=== PATIENT | female | born 1995 | race Caucasian/White ===

== ENCOUNTER 2017-02-10 10:45 | Inpatient (IN) ==
[2017-02-10] MEDS ORDERED: ONDANSETRON 4 MG/2 ML VIAL IV STA (11:14)
[2017-02-10] MEDS ORDERED: HYDROmorphone 2 MG/1 ML VIAL IV STA (11:14)
[2017-02-10] MEDS ORDERED: SODIUM CHLORIDE 0.9% 2,000 ML IV STA (11:14)
[2017-02-10] MEDS ORDERED: ONDANSETRON 4 MG/2 ML VIAL ONE (11:26)
[2017-02-10] MEDS ORDERED: HYDROmorphone 2 MG/1 ML VIAL ONE (11:27)
[2017-02-10 11:29] LABS: Basophils % 0.3 % (0.0-0.8); Eosinophils # 0.1 10*3/uL (0.0-0.87); Eosinophils % 1.9 % (0.00-10.9); Hematocrit 35.8 VOL% (35.7-47.0); Hemoglobin 12.7 GM/DL (12.0-16.0); Immature Granulocytes % 0.6 %; Immature Granulocytes Absolute 0.04 #; Lymphocytes # 0.8 10*3/uL (1.4-4.0); Lymphocytes % 11.4 % (21.3-54.2); Mean Corpuscular HGB Conc 35.5 GM/DL (32-36); Mean Corpuscular Hemoglobin 32 PG (27-34); Mean Corpuscular Volume 90.2 FL (87-102); Monocytes # 0.9 10*3/uL (0.11-0.8); Neutrophils # 5.1 10*3/uL (1.4-7.4); Neutrophils % 72.8 % (38.7-73.9); Platelet Count 185 T/CUMM (130-400); Red Blood Count 3.97 MC/CUMM (3.8-5.5); Red Cell Distribution Width 11.9 % (9.3-17.3); White Blood Count 6.9 T/CUMM (4-12)
[2017-02-10] MEDS ORDERED: AMPICILLIN/SULBACTAM 3,000 MG in SODIUM CHLORIDE 0.9% 100 ML IV STA (11:47)
[2017-02-10 11:55] LABS: Albumin 3.4 G/DL (3.4-5.0); Bilirubin,Total 0.4 MG/DL (0.2-1.0); Calcium 8.7 MG/DL (8.5-10.1); Osmolality,Calculated 275.4 MOS/KG (273-304); Total Protein 6.4 G/DL (6.4-8.3)
--- NOTE | 2017-02-10 12:06 | Ultrasound Report ---
Exam: US abdomen Date: 02/10/2017 11:15 AM Comparison: None Indication: Nausea and vomiting Technique:[Multiple transabdominal real-time scans were obtained of the abdomen. Ultrasound images were captured and stored. Color-flow scans obtained.] Findings: No gallbladder pathology identified. CBD is normal in size measuring 4.2 mm. The liver is normal in size with no masses. The spleen and kidneys have an unremarkable appearance. Right kidney measures 108 mm length. Left kidney measures 112 mm in length. The visualized pancreas and aorta have an unremarkable appearance. The aortic bifurcation is obscured by bowel gas. Color flow in the IVC. Impression: No definite abdominal pathology identified. The Ultrasound images were captured and stored. PROCEDURE INTERPRETED AT [facility] DEPARTMENT OF RADIOLOGY Final Report Signed by: Dr. Suzanne Spencer
[2017-02-10 12:07] LABS: Amorphous Crystals,Urine Many /HPF (Few); Apearance,Urine CLOUDY (Clear); Bilirubin,Urine Negative (Negative); Blood, Urine Moderate mg/dL (Negative); Glucose,Urine (UA) Negative (Negative); Ketones,Urine 20 mg/dL (Negative); Mucus,Urine Many /LPF (Occasional); Nitrite,Urine Negative (Negative); Protein,Urine 30 MG/DL; Squamous Epithelial Cell,Urine Occasional /HPF (0-10); Urine Color Yellow (Yellow); Urine Specific Gravity 1.021 (1.001-1.035); Urine Urobilinogen < 2.0 EU/DL (0.2-1.0)
[2017-02-10] MEDS ORDERED: AMPICILLIN/SULBACTAM 3,000 MG VIAL ONE (13:01)
--- NOTE | 2017-02-10 13:34 | CT Report ---
CT abdomen pelvis w con Indication: Right lower quadrant abdominal pain Comparison: CT abdomen pelvis dated February 09, 2017 Technique: Multiple axial tomographic images of the abdomen and pelvis were obtained after the administration of 100 cc Omnipaque 350 intravenous contrast. Findings: Mild dependent change of the lungs present. No worrisome focal hepatic abnormality. Gallbladder nondistended. The pancreas is grossly unremarkable. The spleen is grossly unremarkable. The bilateral adrenal glands are grossly unremarkable. The bilateral kidneys are grossly unremarkable. The urinary bladder is incompletely distended. The uterus and bilateral adnexa are grossly unremarkable. Multiple pelvic phleboliths. Appendix grossly unremarkable. There is diffuse wall thickening of the colon and distal small bowel suspicious for enterocolitis which appears progressed from comparison study. Differential includes C. Difficile colitis as well as ulcerative colitis. Nonspecific mildly prominent mesenteric and retroperitoneal lymph nodes including the right lower quadrant. These may be reactive. Visualized vasculature grossly unremarkable. Visualized osseous and surrounding soft tissue structures appear grossly unchanged. IMPRESSION: There is diffuse wall thickening of the colon and distal small bowel suspicious for enterocolitis which appears progressed from comparison study. Differential includes C. Difficile colitis as well as ulcerative colitis. Nonspecific mildly prominent mesenteric and retroperitoneal lymph nodes including the right lower quadrant. These may be reactive. The CT exam was performed using one or more of the following dose reduction techniques: Automated exposure control, adjustment of the mA and/or kV according to patient size, or use of iterative reconstruction technique. PROCEDURE INTERPRETED AT [facility] DEPARTMENT OF RADIOLOGY Final Report Signed by: Dr Davonte Zazueta
[2017-02-10 13:51] LABS: Band Neutrophils 31 % (0-10); Eosinophils 1 % (0-10); Hypochromasia 1+; Lymphocytes 13 % (20-55); Platelet Estimate Adequate; Polychromasia Slight; Segmented Neutrophils 46 % (50-85); Total Cells Counted 100
--- NOTE | 2017-02-10 15:02 | Emergency Department Note ---
Du Rivera Manpreet, am scribing for, and in the presence of, Dmitri Phipps MD 11:16. Moise Rivera Doug C, MD, personally performed the services described in this documentation, ascribed by Justen Sandy in my presence, and it is both accurate and complete 502 . Arrival - Arrival Chief Complaint: Nausea/Vomiting/Diarrhea Stated Complaint: n/v/d ED Nursing Triage Note: C/o N/V/D and body aches-onset 4 days ago. Was seen here morning, but states she is no better. Actively vomiting in triage. Mode of Arrival: Ambulatory Limitations: No Limitations Source: Patient, Old Records Reviewed, RN Notes Reviewed - History of Present Illness HPI Narrative: Patient 21 white female comes emergency room complaining of persistent abdominal pain and nausea/vomiting. She has not had any fever or chills associated with this. She denies possibility of . She was seen here several days ago and had a CT of the abdomen which revealed some mesenteric adenopathy as well as some small bowel wall thickening suggesting enteritis. Patient states she was given some nausea which she promptly vomits up. Patient states she is just miserable and she is tearful during exam and obtaining the history. Onset (ago): day(s) (02/13/17) Consistency: constant Severity: moderate Date of Last Menstrual Period: at current Allergies/Adverse Reactions: Allergies Allergy/AdvReac Type Severity Reaction Status Date / Time No Known Allergies Allergy Verified 02/09/17 04:52 Home Medications: Home Medications Medication Instructions Recorded Confirmed Type Escitalopram [Lexapro] 10 mg PO DAILY PRN 02/09/17 02/10/17 History Naproxen [Naprosyn Tab] 375 mg PO Q12H PRN 02/09/17 02/10/17 History Ondansetron Odt Tab [Zofran Odt] 4 mg PO Q6H PRN #10 tablet 02/09/17 02/10/17 Rx Promethazine Tab [Phenergan Tab] 25 mg PO Q6H 02/09/17 02/10/17 History clonazePAM [Clonazepam] 1 mg PO DIRECTED PRN 02/09/17 02/10/17 History Review of System - Review of System 12 point system: reviewed and no additional remarkable complaints except as stated - Review of System Constitutional: Present: chills, diaphoresis. Absent: fever Respiratory: Absent: respiratory distress, wheezing Cardiovascular: Absent: chest pain Gastrointestinal: Present: abdominal pain, nausea, vomiting, diarrhea. Absent: hematemesis, melena Genitourinary female: Absent: dysuria Musculoskeletal: Absent: back pain, neck pain Skin: Absent: rash, lesions Neurological: Absent: headache, weakness Medical,Surgical,& Family Hx - Medical History Psychological: History of: Anxiety Disorders - Surgical History Surgical History: noncontributory - Family History Family History: noncontributory - Social History Smoking Status: Former smoker Frequency of Alcohol Use: None Type of Drug Use: None Exam Vital Signs: Vital Signs Temperature 102.0 F H 02/10/17 11:45 Pulse Rate 96 H 02/10/17 11:45 Respiratory Rate 21 02/10/17 11:45 Blood Pressure 141/79 02/10/17 11:45 O2 Sat by Pulse Oximetry 99 02/10/17 11:45 - General General appearance: alert, in no apparent distress - Head Head exam: Present: atraumatic, normocephalic, normal inspection - Eye Eye exam: Present: normal appearance, PERRL, EOMI - ENT ENT exam: Present: normal exam, normal oropharynx, mucous membranes moist - Neck Neck exam: Present: normal inspection, full ROM, trachea midline. Absent: tenderness - Chest Chest inspection: Present: normal inspection, symmetric chest wall rise. Absent : tenderness - Respiratory Respiratory exam: Present: normal lung sounds bilaterally. Absent: respiratory distress - Cardiovascular Cardiovascular exam: Present: regular rate, normal rhythm, normal heart sounds - Abdominal Exam Abdominal exam: Present: soft, tenderness (RUQ tenderness), normal bowel sounds. Absent: guarding, rebound - Extremities Exam Extremities exam: Present: normal inspection, full ROM, tenderness - Back Exam Back exam: Present: normal inspection, full ROM - Neurological Exam Neurological exam: Present: alert, oriented X3, CN II-XII intact, reflexes normal - Psychiatric Psychiatric exam: Present: normal affect, normal mood - Skin Skin exam: Present: warm, dry, intact, normal color. Absent: pallor Course Course Narrative: Patient's clinical presentation, laboratory and radiograph findings were discussed with the hospitalist service. They will evaluate the patient for possible admission. Results - Labs CBC & BMP: 02/10/17 11:23 02/10/17 11:23 Lab Results: I have reviewed the patients labs Labs: Laboratory Tests 02/10/17 11:23 WBC 6.9 D RBC 3.97 Hgb 12.7 Hct 35.8 MCV 90.2 MCH 32 MCHC 35.5 RDW 11.9 Plt Count 185 MPV 10.0 Neut % (Auto) 72.8 Lymph % (Auto) 11.4 L [place] % (Auto) 13.0 H Eos % (Auto) 1.9 Baso % (Auto) 0.3 Neut # (Auto) 5.1 Lymph # (Auto) 0.8 L [place] # (Auto) 0.9 H Eos # (Auto) 0.1 Baso # (Auto) 0.0 Total Counted Pending Immature Gran % 0.6 Nucleated RBC % 0.0 Immature Gran # 0.04 Nucleated RBCs # 0.00 Immature Plt Fraction 0.0 Laboratory Tests 02/10/17 11:23 Lactic Acid 1.1 Laboratory Tests 02/10/17 02/10/17 11:23 11:23 Sodium 140 Potassium 3.0 L Chloride 105 Carbon Dioxide 25 Anion Gap 13.0 BUN 4 L Creatinine 0.70 GFR Calculation 138 BUN/Creatinine Ratio 5.00 L Glucose 95 Calculated Osmolality 275.4 Lactic Acid 1.1 Calcium 8.7 Total Bilirubin 0.40 AST 9 ALT 14 Alkaline Phosphatase 49 Total Protein 6.4 Albumin 3.4 Globulin 3.0 Albumin/Globulin Ratio 1.1 Lipase 112.0 D Laboratory Tests 02/10/17 02/10/17 11:23 11:23 Urine Color Yellow Urine Appearance Cloudy Urine pH 5.0 Ur Specific [place] 1.021 Urine Protein 30 Urine Glucose (UA) Negative Urine Ketones 20 Urine Blood Moderate Urine Nitrate Negative Urine Bilirubin Negative Urine Urobilinogen < 2.0 H Urine Leukocytes Negative Ur Squamous Epith Cells Occasional Amorphous Crystals Many Urine Mucus Many Ur Culture Indicated? Not indicated Urine Test Negative Laboratory Tests 02/10/17 12:07 ESR Westergren 60 H Laboratory Tests 02/10/17 11:23 Total Counted 100 Segmented Neutrophils 46 L Band Neutrophils 31 H Lymphocytes 13 L Monocytes 9 Eosinophils 1 Platelet Estimate Adequate Polychromasia Slight Hypochromasia 1+ - Diagnostic Findings Procedure: CT Abdomen and Pelvis: report reviewed by me ("CT Abd/pel w/o con: There is diffuse wall thickening of the colon and distal small bowel suspicious for enterocolitis which appears progressed from comparison study. Differential includes C. Difficile colitis as well as ulcerative colitis. Nonspecific mildly prominent mesenteric and retroperitoneal lymph nodes including the right lower quadrant. These may be reactive."), Ultrasound: report reviewed by me ("US Abd: no definite abdominal pathology identified.") Disposition Clinical Impression: Acute colitis Case discussed with: patient, patient's family Disposition: Still a Patient Condition: Stable Time of Disposition: 15:02
[2017-02-10] MEDS ORDERED: ACETAMINOPHEN 500 MG TABLET ONE (15:13)
[2017-02-10] MEDS ORDERED: ACETAMINOPHEN 500 MG TABLET PO STA (15:22)
--- NOTE | 2017-02-10 16:22 | Hospitalist History & Physical ---
<Urmila Meraz - Last Filed: 02/10/17 17:28> Assessment and Plan (1) Acute colitis Status: Acute Assessment and plan: Admit to med surg. Consult GI. Stool samples (culture, wbc, c diff, and occult blood). IVFs. Clear liquid. Blood cultures pending. Current Visit: Yes (2) Diarrhea Status: Acute Assessment and plan: IVF. Stool samples. Current Visit: No (3) Vomiting Status: Acute Assessment and plan: prn zofran Current Visit: No History of Present Illness Chief complaint: abdominal pain History of present illness: Ms. Wilson is a 21 year old white female with no known medical history that presents to the ED with complaints of persistent abdominal pain, nausea, vomiting, and diarrhea. Patient states that she was just in the ED yesterday but was released and given Zofran. Patient states that the abdominal pain, nausea, vomiting, and diarrhea began on Monday. Abdominal pain is mainly located in the right lower quadrant. She denies fever, chest pain, and shortness of breath but confirms body aches chills and night sweats. Pt. reports not being able to eat since Monday. Pt. reports stools that were liquid and yellowish in color. Patient denies as she is menstruating at this time.During patient's ED visit (02/09) she had a CT of the abdomen which revealed some mesenteric adenopathy as well as mild, suggesting enteritis. Today , pt. states she vomited several times and was miserable. Pt. had a repeat CT today which revealed 'diffuse wall thickening of the colon and distal small bowel suspicious for enterocolitis which appears progressed from comparison study'. 'Nonspecific mildly prominent mesenteric and retroperitoneal lymph nodes including the right lower quadrant' Labs revealed a sed rate of 60 and CRP of 9.52. Pt's case has been discussed with ER physician Dr. Phipps and hospitalist Dr. Hancock. Pt. will be admitted to the hospitalist service for further eval and treatment. Home Medications Medication Instructions Recorded Confirmed Type Escitalopram [Lexapro] 10 mg PO DAILY PRN 02/09/17 02/10/17 History Naproxen [Naprosyn Tab] 375 mg PO Q12H PRN 02/09/17 02/10/17 History Ondansetron Odt Tab [Zofran Odt] 4 mg PO Q6H PRN #10 tablet 02/09/17 02/10/17 Rx Promethazine Tab [Phenergan Tab] 25 mg PO Q6H 02/09/17 02/10/17 History clonazePAM [Clonazepam] 1 mg PO DIRECTED PRN 02/09/17 02/10/17 History Allergies Allergy/AdvReac Type Severity Reaction Status Date / Time No Known Allergies Allergy Verified 02/09/17 04:52 Medical,Surgical,& Family Hx - Medical History Psychological: History of: Anxiety Disorders - Social History Smoking Status: Former smoker Frequency of Alcohol Use: None Type of Drug Use: None Marital Status: Single Lives With:: grandparents Functional capacity: independent ambulation 12 point system: reviewed and no additional remarkable complaints except as stated Exam - Constitutional Vitals: Period Temp Pulse Resp BP Sys/Gupta Pulse Ox Last 24 Hr 99.7 F-102.0 F 80-130 14-21 112-141/67-84 98-100 General appearance: no acute distress, over weight - Head Head exam: Present: normal inspection, normocephalic - Eye Eye exam: Present: EOMI Pupils: Present: MICHELLE - Respiratory Respiratory exam: Present: clear to auscultation bilaterally. Absent: wheezes - Cardiovascular Cardiovascular exam: Present: regular rate and rhythm - GI/Abdominal GI/Abdominal exam: Present: normal bowel sounds, guarding, tenderness, soft. Absent: distended - Extremities Exam Extremities exam: Present: normal capillary refill, full ROM. Absent: edema - Neurological Exam Neurological exam: Present: alert, oriented X3 - Psychiatric Psychiatric exam: Present: normal affect, normal mood - Skin Skin exam: Present: normal color, warm, dry Results - Labs CBC & BMP: 02/10/17 11:23 02/10/17 11:23 Lab Results: I have reviewed the past 24 hour labs <Marco Hancock - Last Filed: 02/11/17 07:24> History of Present Illness History of present illness: Ms. Wilson is a 21 year old female who is being admitted to the hospital with complaints of abdominal pain, nausea, vomiting, and diarrhea. I have interviewed and examined the patient and reviewed all available laboratory and radiographic test results. Agree with the assessment and plans of Urmila ZAVALA. Ms. Wilson is being admitted to the hospital, placed on bowel rest, begun on intravenous normal saline infusion, and administered intravenous anti- emetics and analgesic medications as necessary. Gastroenterology has been consulted. Exam - Constitutional Vitals: Period Temp Pulse Resp BP Sys/Gupta Pulse Ox Last 24 Hr 98.1 F-102.0 F 70-130 14-21 102-141/56-84 94-100 Results - Labs CBC & BMP: 02/11/17 02:37 02/11/17 02:37
[2017-02-10] MEDS ORDERED: ESCITALOPRAM 10 MG TABLET PO PRN (16:55)
[2017-02-10] MEDS ORDERED: ACETAMINOPHEN 325 MG TABLET PO PRN (16:55)
[2017-02-10] MEDS: CIPROFLOXACIN INJ 400 MG in PREMIX 1 EACH IV SCH (18:49)
[2017-02-10] MEDS: SODIUM CHLORIDE 0.9% 1,000 ML IV SCH (18:59)
[2017-02-10] MEDS: HYDROmorphone 2 MG/1 ML VIAL IV PRN ×2 (19:00→22:35)
[2017-02-10] MEDS: ONDANSETRON 4 MG/2 ML VIAL IV PRN (19:00)
[2017-02-10] MEDS: metroNIDAZOLE INJ 500 MG in PREMIX 1 EACH IV SCH (22:04)
[2017-02-11 04:13] LABS: Basophils % 0.4 % (0.0-0.8); Eosinophils # 0.1 10*3/uL (0.0-0.87); Eosinophils % 1.4 % (0.00-10.9); Hematocrit 30.4 VOL% (35.7-47.0); Hemoglobin 10.6 GM/DL (12.0-16.0); Immature Granulocytes % 0.6 %; Immature Granulocytes Absolute 0.03 #; Lymphocytes # 1.1 10*3/uL (1.4-4.0); Lymphocytes % 21.7 % (21.3-54.2); Mean Corpuscular HGB Conc 34.9 GM/DL (32-36); Mean Corpuscular Hemoglobin 32 PG (27-34); Mean Corpuscular Volume 90.2 FL (87-102); Mean Platelet Volume 10.9 FL (9.6-12.0); Monocytes # 0.6 10*3/uL (0.11-0.8); Monocytes % 11.9 % (1.7-12.7); Neutrophils # 3.2 10*3/uL (1.4-7.4); Platelet Count 172 T/CUMM (130-400); Red Blood Count 3.37 MC/CUMM (3.8-5.5); Red Cell Distribution Width 12.1 % (9.3-17.3)
[2017-02-11 04:24] LABS: Osmolality,Calculated 274.4 MOS/KG (273-304); Potassium 2.8 MMOL/L (3.5-5.1)
[2017-02-11] MEDS: metroNIDAZOLE INJ 500 MG in PREMIX 1 EACH IV SCH ×3 (05:15→21:22)
--- NOTE | 2017-02-11 06:33 | Gastrointestinal Consult Note ---
Assessment and Plan - Time spent with patient Time spent with patient: Greater than 30 minutes (1) Enterocolitis Status: Acute Current Visit: Yes (2) Other specified counseling Status: Acute Current Visit: Yes History of Present Illness History of present illness: Ms. Wilson is a 21 year old female Home Medications Medication Instructions Recorded Confirmed Type Escitalopram [Lexapro] 10 mg PO DAILY PRN 02/09/17 02/10/17 History Naproxen [Naprosyn Tab] 375 mg PO Q12H PRN 02/09/17 02/10/17 History Ondansetron Odt Tab [Zofran Odt] 4 mg PO Q6H PRN #10 tablet 02/09/17 02/10/17 Rx Promethazine Tab [Phenergan Tab] 25 mg PO Q6H 02/09/17 02/10/17 History clonazePAM [Clonazepam] 1 mg PO DIRECTED PRN 02/09/17 02/10/17 History Allergies Allergy/AdvReac Type Severity Reaction Status Date / Time No Known Allergies Allergy Verified 02/09/17 04:52 Medical,Surgical,& Family Hx - Medical History Psychological: History of: Anxiety Disorders - Surgical History HEENT Surgeries: Surgical HX of: Tonsilectomy & Adenoidectomy (2002) - Social History Smoking Status: Former smoker Frequency of Alcohol Use: None Type of Drug Use: None Exam - Constitutional Vitals: Period Temp Pulse Resp BP Sys/Gupta Pulse Ox Last 24 Hr 98.1 F-102.0 F 70-130 14-21 102-141/56-84 94-100 Results - Labs CBC & BMP: 02/11/17 02:37 02/11/17 02:37 Quality Measures - Stroke Symptom Onset Unknown: No Note Addendum: PLEASE NOTE -- automatic citation of patient information is unavoidable in this electronic note. I have made a reasonable effort to review the information cited , but it is not a part of my evaluation, impression, or recommendation unless specifically discussed in the dictated text that follows. As well, voice recognition software was used in the creation of this clinical note. Reasonable effort was made to identify and correct gross errors. Despite proofreading, errors in manager business information may be present, including nonsense verbiage at times. If you encounter such an error, please contact me at for discussion and correction. -- Nabeel Chief complaint: abdominal pain History of present illness: This is a new patient, a 21-year-old female seen by consultation for evaluation of suspected colitis. The patient is admitted to hospitalist service under the care of Dr. Hancock with a primary diagnosis of acute colitis. The patient was admitted through the emergency department last evening with primary complaint of five days nausea, vomiting, and diarrhea. Laboratory work at that time revealed normal electrolytes with the exception of mild hypokalemia and normal blood counts. CT of the abdomen and pelvis revealed, " diffuse wall thickening of the colon and small bowel suspicious for enterocolitis". She was admitted for supportive care and started on moderately aggressive crystalloid resuscitation with multiple diagnostic labs taken. She was also started on empiric antibiotic with typical gut coverage. She now reports feeling only a little better. She hasn't taken much in the way of food and doesn't have much of an appetite at present. She denies infectious contacts, tainted ingestion, medication or substance ingestion, and prior episodes such as this. She notes that, prior to this past Monday, she felt perfectly normal and that the symptoms came on her fairly suddenly. Through the course of the week, some to waxed and waned but became debilitating by evening. She has no other past medical history. Patient denies fever, chills, night sweats, rigors, headache, dizziness, neck pain, visual changes, redness of the eyes, dysphagia, odynophagia, difficulty chewing, chest pain, shortness of breath, weight loss, regurgitation, hematemesis, hematochezia, melena, proctalgia, constipation, dysuria, skin changes, temperature regulation issues, flushing, easy bleeding/bruising, musculoskeletal pain, mental status change, numbness/weakness in the extremities , yellowing of the eyes/skin, cutaneous eruptions, allergies to food or drug, family history of gastrointestinal cancer and inflammatory bowel disease, and other complaints in general. Review of systems: 12 point review of systems was negative except as documented above. Outpatient medications: clonazepam 1 mg as needed and as directed, Phenergen 25 mg every six hours, Zofran 4 mg every six hours as needed, Naprosyn three or 75 mg every 12 hours as needed, Lexapro 10 mg daily Inpatient medications: Tylenol 650 mg every four hours as needed, [place] 5/325 every four hours as needed for mild pain, Dilaudid 1 mg every three hours as needed for severe pain, ciprofloxacin 4 mg daily, Flagyl 5 mg every eight hours , Lexapro 10 mg daily, clonazepam 1 mg as needed directed, Zofran 4 mg every four hours as needed for nausea and vomiting, normal saline infusion 125 mL per hour Past Medical History: anxiety disorder Social history: former tobacco. Negative alcohol. Negative recreational drugs. Family history: no gastrointestinal cancers Physical examination: Vital Signs: Current vital signs reviewed and documented above. General Appearance: lying in bed. Mild discomfort evident. No acute distress. Head: Normocephalic. Neck: Palpation of the neck revealed no abnormalities. Eyes: No scleral icterus. No scleral injection. No conjunctival pallor. Oral Cavity: Odor of breath was normal. No drooling was observed. Lips showed no abnormalities. Floor of the mouth showed no abnormalities. Pharynx: Oropharynx was normal. Lungs: Respiration rhythm and depth was normal. Cardiovascular: Heart rate and rhythm were normal. No murmurs were appreciated. Abdomen: abdomen was not distended. Abdominal palpation revealed minimal diffuse tenderness and no hepatosplenomegaly. Ascites was not discovered. Abdominal auscultation revealed positive bowel sounds. Musculoskeletal System: Musculoskeletal system was grossly normal. Neurological: level of consciousness was normal. Speech was normal. Skin: General appearance was normal. Color and pigmentation were normal. No skin lesions. Laboratory: white blood count 5.0, hemoglobin 10.6, MCV 90, platelets 172, segmented neutrophils 64%, sodium 140, potassium 2.8, chloride 104, CO2 25, BUN 4, creatinine 0.5, glucose 84, calcium 8.0, ALT 14, AST 9, alkaline phosphatase 49, bilirubin 0.4, lactate 1.1, albumin 3.4, total protein 6.4, C-reactive protein 9.5, ESR 60, urinalysis positive for blood but otherwise negative ( patient is menstruating) Radiology: -- abdomen/pelvis CT, 02/10/17: diffuse wall thickening of the colon and distal small bowel suspicious for enterocolitis, progressive compared to previous examination; mildly prominent mesenteric and retroperitoneal nodes including the right lower quadrant -- abdominal ultrasound, 10/13/17: normal gallbladder; normal common bile duct; normal liver, spleen, and kidneys; normal visualized pancreas and vasculature; normal Doppler Impressions: #1. Acute enterocolitis -- the differential diagnosis includes both viral and bacterial infection, inflammatory bowel disease, ischemic colitis, and others. The former is most likely with no prior history and acute onset. I agree with screening for infectious causes. Continued empiric antibiotic is reasonable but may not significantly change the course of symptoms. Endoscopic evaluation is not indicated at present but we should consider this if symptoms do not improve over the next 2-3 days. As well, even with improvement, we should consider colonoscopy during convalescence to ensure no evidence of inflammatory bowel disease. #2. Other specified counseling -- The patient was seen for greater than 30 minutes. The patient was counseled for greater than 50% of this time regarding differential diagnosis, likely diagnosis, diagnostic and therapeutic alternatives, risks/benefits/alternatives of medications and procedures, and plan of care generally. The patient expressed understanding and wishes to proceed. Recommendations: -- continued crystalloid resuscitation -- continued empiric antibiotic at your discretion -- advance diet as tolerated -- stool studies as ordered -- consider colonoscopy with timing based on clinical progress, most likely during convalescence -- thank you for this consultation. We will continue to follow with you.
[2017-02-11] MEDS: SODIUM CHLORIDE 0.9% 1,000 ML IV SCH ×2 (07:50→16:52)
[2017-02-11] MEDS: HYDROmorphone 2 MG/1 ML VIAL IV PRN ×3 (08:42→22:41)
[2017-02-11] MEDS: POTASSIUM CHLORIDE 20 MEQ TABLET PO PRN ×4 (08:42→18:07)
[2017-02-11] MEDS: ONDANSETRON 4 MG/2 ML VIAL IV PRN ×3 (08:43→22:41)
--- NOTE | 2017-02-11 10:52 | Hospitalist Progress Note ---
Assessment and Plan (1) Hypokalemia Status: Acute Assessment and plan: As noted above, she continues to experience abdominal pain, nausea, vomiting, and diarrhea. She continues on bowel rest with intravenous normal saline infusion. Stool studies have demonstrated them to be Hemoccult positive with few white blood cells. Clostridium difficile toxin assay was negative. Current Visit: Yes (2) Enterocolitis Status: Acute Assessment and plan: Potassium today is 2.9. She is being treated with potassium chloride protocol. Current Visit: Yes Hospitalist: Subjective Interval history: Patient continues to experience abdominal pain, nausea, vomiting, and diarrhea. She has been seen in consultation by Dr. Lees of gastroenterology who concurs with the present treatment. Exam - Constitutional Vitals: Period Temp Pulse Resp BP Sys/Gupta Pulse Ox Last 24 Hr 98 F-102.0 F 64-130 14-21 102-141/56-84 94-100 General appearance: no acute distress - Head Head exam: Present: normal inspection - Neck Neck exam: Present: normal inspection - Respiratory Respiratory exam: Present: clear to auscultation bilaterally - Cardiovascular Cardiovascular exam: Present: regular rate and rhythm - GI/Abdominal GI/Abdominal exam: Present: normal bowel sounds, soft, other (Nontender with no palpable masses or hepatosplenomegaly.) - Extremities Exam Extremities exam: Present: normal inspection - Skin Skin exam: Present: normal color, warm, intact Results - Labs CBC & BMP: 02/11/17 02:37 02/11/17 02:37 Quality Measures - Stroke Symptom Onset Unknown: No
[2017-02-11] MEDS: POTASSIUM CHLORIDE 20 MEQ/15 ML UDCUP PO SCH (13:52)
[2017-02-11] MEDS: CIPROFLOXACIN INJ 400 MG in PREMIX 1 EACH IV SCH (16:48)
[2017-02-11] MEDS: POTASSIUM CHLORIDE 20 MEQ TABLET PO SCH (22:24)
[2017-02-12 00:49] LABS: Basophils % 0.2 % (0.0-0.8); Eosinophils # 0.2 10*3/uL (0.0-0.87); Eosinophils % 3.4 % (0.00-10.9); Hematocrit 30.6 VOL% (35.7-47.0); Hemoglobin 10.9 GM/DL (12.0-16.0); Immature Granulocytes % 0.5 %; Immature Granulocytes Absolute 0.03 #; Lymphocytes # 2.3 10*3/uL (1.4-4.0); Lymphocytes % 36.4 % (21.3-54.2); Mean Corpuscular HGB Conc 35.6 GM/DL (32-36); Mean Corpuscular Hemoglobin 32 PG (27-34); Mean Corpuscular Volume 90.5 FL (87-102); Mean Platelet Volume 10.2 FL (9.6-12.0); Monocytes # 0.5 10*3/uL (0.11-0.8); Monocytes % 8.7 % (1.7-12.7); Neutrophils # 3.2 10*3/uL (1.4-7.4); Neutrophils % 50.8 % (38.7-73.9); Platelet Count 191 T/CUMM (130-400); Red Blood Count 3.38 MC/CUMM (3.8-5.5); Red Cell Distribution Width 12.2 % (9.3-17.3); White Blood Count 6.2 T/CUMM (4-12)
[2017-02-12 00:52] LABS: Calcium 8.2 MG/DL (8.5-10.1); Potassium 3.3 MMOL/L (3.5-5.1)
[2017-02-12] MEDS: SODIUM CHLORIDE 0.9% 1,000 ML IV SCH ×3 (03:00→21:06)
[2017-02-12 03:03] LABS: Band Neutrophils 2 % (0-10); Eosinophils 1 % (0-10); Lymphocytes 32 % (20-55); Platelet Estimate Normal; Segmented Neutrophils 55 % (50-85); Total Cells Counted 100
[2017-02-12] MEDS: metroNIDAZOLE INJ 500 MG in PREMIX 1 EACH IV SCH ×3 (04:43→21:04)
[2017-02-12] MEDS: POTASSIUM CHLORIDE 20 MEQ/15 ML UDCUP PO SCH ×4 (06:44→21:02)
[2017-02-12] MEDS: POTASSIUM CHLORIDE 20 MEQ TABLET PO SCH (08:30)
[2017-02-12] MEDS: HYDROmorphone 2 MG/1 ML VIAL IV PRN ×3 (08:31→21:45)
[2017-02-12] MEDS: POTASSIUM CHLORIDE 20 MEQ TABLET PO PRN ×3 (08:31→15:24)
[2017-02-12] MEDS: ONDANSETRON 4 MG/2 ML VIAL IV PRN ×3 (08:32→21:42)
--- NOTE | 2017-02-12 09:29 | Gastrointestinal Progress Note ---
Assessment and Plan - Time spent with patient Time spent with patient: Less than 30 minutes (1) Enterocolitis Status: Acute Current Visit: Yes (2) Other specified counseling Status: Acute Current Visit: Yes Exam (Progress Note) - Constitutional Vitals: Period Temp Pulse Resp BP Sys/Gupta Pulse Ox Last 24 Hr 97.6 F-98.2 F 49-67 18-20 94-133/48-70 92-98 Results - Labs CBC & BMP: 02/12/17 00:10 02/12/17 00:10 Note Addendum: PLEASE NOTE -- automatic citation of patient information is unavoidable in this electronic note. I have made a reasonable effort to review the information cited , but it is not a part of my evaluation, impression, or recommendation unless specifically discussed in the dictated text that follows. As well, voice recognition software was used in the creation of this clinical note. Reasonable effort was made to identify and correct gross errors. Despite proofreading, errors in automobile [employer] membership sales agent may be present, including nonsense verbiage at times. If you encounter such an error, please contact me at for discussion and correction. -- Nabeel Chief complaint: abdominal pain History of present illness: This is a follow-up patient, a 21-year-old female seen by consultation for evaluation of suspected colitis. She reports some improvement in nausea but continues with abdominal discomfort and frequent diarrhea. She is tolerating clear liquids. She has not seen blood in her stool. Inpatient medications: Tylenol 650 mg every four hours as needed, [place] 5/325 every four hours as needed for mild pain, Dilaudid 1 mg every three hours as needed for severe pain, ciprofloxacin 4 mg daily, Flagyl 5 mg every eight hours , Lexapro 10 mg daily, clonazepam 1 mg as needed directed, Zofran 4 mg every four hours as needed for nausea and vomiting, normal saline infusion 125 mL per hour Past Medical History: anxiety disorder Social history: former tobacco. Negative alcohol. Negative recreational drugs. Family history: no gastrointestinal cancers Physical examination: Vital Signs: Current vital signs reviewed and documented above. General Appearance: lying in bed. Mild discomfort evident. No acute distress. Head: Normocephalic. Neck: Palpation of the neck revealed no abnormalities. Eyes: No scleral icterus. No scleral injection. No conjunctival pallor. Oral Cavity: Odor of breath was normal. No drooling was observed. Lips showed no abnormalities. Floor of the mouth showed no abnormalities. Pharynx: Oropharynx was normal. Lungs: Respiration rhythm and depth was normal. Cardiovascular: Heart rate and rhythm were normal. No murmurs were appreciated. Abdomen: abdomen was not distended. Abdominal palpation revealed minimal diffuse tenderness and no hepatosplenomegaly. Ascites was not discovered. Abdominal auscultation revealed positive bowel sounds. Musculoskeletal System: Musculoskeletal system was grossly normal. Neurological: level of consciousness was normal. Speech was normal. Skin: General appearance was normal. Color and pigmentation were normal. No skin lesions. Laboratory: white blood count 6.2, hemoglobin 10.9, platelets 191 Radiology: -- abdomen/pelvis CT, 02/10/17: diffuse wall thickening of the colon and distal small bowel suspicious for enterocolitis, progressive compared to previous examination; mildly prominent mesenteric and retroperitoneal nodes including the right lower quadrant -- abdominal ultrasound, 02/10/17: normal gallbladder; normal common bile duct; normal liver, spleen, and kidneys; normal visualized pancreas and vasculature; normal Doppler Impressions: #1. Acute enterocolitis -- the differential diagnosis is unchanged. Continued empiric antibiotic is reasonable. Colonoscopy will be needed in the near future with timing based on clinical progress, likely during convalescence. In the interim, I recommend continued crystalloid resuscitation with electrolyte management as well as nausea and pain control as needed. #2. Other specified counseling -- The patient was seen for less than 30 minutes. The patient was counseled for greater than 50% of this time regarding differential diagnosis, likely diagnosis, diagnostic and therapeutic alternatives, risks/benefits/alternatives of medications and procedures, and plan of care generally. The patient expressed understanding and wishes to proceed. Recommendations: -- continued crystalloid resuscitation -- continued empiric antibiotic at your discretion -- advance diet as tolerated -- consider colonoscopy with timing based on clinical progress, most likely during convalescence -- thank you for this consultation. Dr. Jose will assume GI care for this patient tomorrow
--- NOTE | 2017-02-12 09:48 | Hospitalist Progress Note ---
Assessment and Plan (1) Hypokalemia Status: Acute Assessment and plan: Her potassium today is 3.3. She is receiving potassium chloride replacement via standard protocol. Current Visit: Yes (2) Enterocolitis Status: Acute Assessment and plan: She is not experiencing abdominal pain, nausea, or vomiting. She continues to complain of diarrhea. She would like to try a soft diet, to which I have agreed. Current Visit: Yes Hospitalist: Subjective Interval history: Ms. Wilson feels somewhat better today. She is not experiencing any more nausea and vomiting. She continues to experience multiple episodes of diarrhea daily. She would like to try a soft diet. Exam - Constitutional Vitals: Period Temp Pulse Resp BP Sys/Gupta Pulse Ox Last 24 Hr 97.6 F-98.2 F 49-67 18-20 94-133/48-70 92-98 General appearance: no acute distress - Head Head exam: Present: normal inspection - Neck Neck exam: Present: normal inspection - Respiratory Respiratory exam: Present: clear to auscultation bilaterally - Cardiovascular Cardiovascular exam: Present: regular rate and rhythm - GI/Abdominal GI/Abdominal exam: Present: normal bowel sounds, soft, other (Nontender with no palpable masses or hepatosplenomegaly.) - Extremities Exam Extremities exam: Present: normal inspection - Skin Skin exam: Present: normal color, warm, intact Results - Labs CBC & BMP: 02/12/17 00:10 02/12/17 00:10 Quality Measures - Stroke Symptom Onset Unknown: No
[2017-02-12] MEDS: CIPROFLOXACIN INJ 400 MG in PREMIX 1 EACH IV SCH (15:30)
[2017-02-13 05:23] LABS: Calcium 8.1 MG/DL (8.5-10.1); Potassium 4.3 MMOL/L (3.5-5.1)
[2017-02-13] MEDS: SODIUM CHLORIDE 0.9% 1,000 ML IV SCH ×2 (05:30→12:33)
[2017-02-13] MEDS: metroNIDAZOLE INJ 500 MG in PREMIX 1 EACH IV SCH ×2 (05:30→12:13)
[2017-02-13] MEDS ORDERED: clonazePAM 0.5 MG TABLET PO PRN (07:00)
[2017-02-13] MEDS ORDERED: CIPROFLOXACIN INJ 400 MG in PREMIX 1 EACH IV SCH (08:00)
[2017-02-13] MEDS: ONDANSETRON 4 MG/2 ML VIAL IV PRN (08:46)
[2017-02-13] MEDS: HYDROmorphone 2 MG/1 ML VIAL IV PRN (08:46)
[2017-02-13] MEDS: POTASSIUM CHLORIDE 20 MEQ/15 ML UDCUP PO SCH (08:47)
--- NOTE | 2017-02-13 10:53 | Gastrointestinal Progress Note ---
Assessment and Plan (1) Abdominal pain Status: Acute Assessment and plan: 02/13-abdominal pain minimally improved with no further complaints of nausea or vomiting. Diarrhea is significantly improved with very small semi-formed stool this morning. Continue IV antibiotics at this time. Plan an addendum to followed by Dr. Jose. Current Visit: No Gastroenterology - PN: Subj Interval history: CC: Abdominal pain, nausea vomiting Patient is seen, awake and alert lying in bed. States that she has not slept well since admission however other than he has had an uneventful night. She states that she is having no further nausea or vomiting at this time. She does report having a small semi-formed bowel movement this morning and states her diarrhea has improved significantly. She is having no complaints of overt bleeding. Denies any fever or chills. She was noted on admission to have findings on her CT of her abdomen with thickening of her colon wall as well as distal small bowel thickening suspicious for enterocolitis. She has no prior GI history and denies a family history as well of GI disease or disorders. She has had a soft diet initiated and is tolerating small amount of this with appetite gradually improving. Stools were noted on admission to be 4+ positive for blood however patient has not seen any visible bleeding. Patient is stating she is ready to go home so she can rest better however she does state that her abdominal pain is only minimally improved and she does have some continued abdominal tenderness with palpation. Abdomen soft, tender to palpation. ROS: Denies shortness of breath or chest pain Exam (Progress Note) - Constitutional Vitals: Period Temp Pulse Resp BP Sys/Gupta Pulse Ox Last 24 Hr 97.2 F-98.3 F 50-73 18-20 120-147/70-93 93-130 General appearance: normal weight, no acute distress - Head Head exam: Present: normal inspection, normocephalic - Eye Eye exam: Present: other (Lids and conjunctivae are unremarkable). Absent: scleral icterus - ENT ENT exam: Present: normal exam, normal oropharynx - Neck Neck exam: Present: normal inspection - Respiratory Respiratory exam: Present: clear to auscultation bilaterally. Absent: rales, rhonchi, wheezes - Cardiovascular Cardiovascular exam: Present: regular rate and rhythm. Absent: diastolic murmur , JVD, systolic murmur - GI/Abdominal GI/Abdominal exam: Present: normal bowel sounds, tenderness, soft. Absent: ascites, distended, mass, organomegaly - Extremities Exam Extremities exam: Present: normal inspection, full ROM - Back Exam Back exam: Present: normal inspection - Neurological Exam Neurological exam: Present: alert, oriented X3 - Psychiatric Psychiatric exam: Present: normal affect, normal mood - Skin Skin exam: Present: normal color, warm, dry Results - Labs CBC & BMP: 02/12/17 00:10 02/13/17 04:11 Lab Results: I have reviewed the past 24 hour labs - Diagnostic Findings Procedure: CT Abdomen and Pelvis: report reviewed by me
--- NOTE | 2017-02-13 11:40 | Discharge Summary ---
<Freda Barros - Last Filed: 02/13/17 11:34> Hospital Course - Hospital Course Hospital Course: This is a very pleasant 21-year-old female that presented to the ED at [facility] on the afternoon of February 10, 2017 further evaluation of abdominal pain, nausea, vomiting, diarrhea. The patient reported a medical history significant for anxiety disorder and surgical history significant for adenoidectomy and tonsillectomy. The patient reported the onset of symptoms 5 days prior to presentation. The patient reported that she sought medical attention here at [facility] in the emergency department on yesterday where she was evaluated and subsequently discharged with instructions to take Zofran. She reported that the pain was primarily located in the right lower quadrant with body aches and chills however, denied fever, chest pain, shortness of breath. Her symptoms became severe prompting her to present to the ED at [facility] for further evaluation. The patient was assessed at the time of ED presentation. The patient was noted to be febrile with a temperature recorded at 102.5 at the time of presentation. Labs were obtained which were significant for white blood cell count 6.9, potassium 3.0, BUN 4, sedimentation rate 60, C-reactive protein was noted at 9.5 to and lipase 112. Urinalysis was essentially unremarkable. CT abdomen and pelvis was significant for diffuse wall thickening of the colon and distal small bowel suspicious for internal colitis; nonspecific mildly prominent mesenteric and retroperitoneal lymph nodes noted in the right lower quadrant. The patient was subsequently admitted to the hospitalist service for continuation of care. Due to the severity of the patient's presenting symptoms, a gastroenterology consultation was requested. Empiric antibiotic coverage, pain management, protein pump inhibitors, deep vein thrombosis prophylaxis, and gentle rehydration was initiated. The patient was evaluated by gastroenterology and recommendations were given. Stool specimens were obtained which were significant for +4 positive occult blood and few white blood cell count seen. The patient's condition gradually improved. The patient's condition is stable. She has not experienced any significant overnight events. The patient is requesting discharge at this time however; both hospital medicine and gastroenterology have spoke with the patient in great detail regarding the need for additional intravenous antibiotics. The patient will be discharged with instructions to continue ciprofloxacin 500 mg by mouth twice daily for 14 days and Flagyl 500 mg 3 times daily for 14 days. The patient has been instructed to follow-up with Dr. Angel Luis Jose in 10-14 days. I agree with the discharge summary as dictated by Freda CHACON. She will follow up with Dr. Jose in 10-14 days. - Time spent with patient Time with patient DS: Greater than 30 minutes Diagnosis - Discharge Diagnosis (1) Acute colitis Status: Resolved (2) Enterocolitis Status: Resolved (3) Hypokalemia Status: Resolved (4) Abdominal pain Status: Resolved Specialty Discharge - Follow Up or Referrals Follow up with: Torsten Jose MD [Physician] - 03/15/17 10:00 am (putpatient c scope ) - Speciality Discharge Instructions Hospitalist Instructions: Follow-up with your primary care physician in 5-7 days after discharge. Please continue to take all medications as prescribed. Discharge Plan - Discharge Data Disposition: Disch To Home/Self Care Condition at Discharge: Stable Discharge Diet: advance to your usual diet Activity: resume usual activities as tolerated Hygiene: no restrictions, may shower Weight Bearing at Discharge: full weight bearing Driving: no restrictions Contact your physician if you experience:: fever over 101, Redness or swelling, Nausea/Vomiting, Shortness of breath, pain uncontrolled by pain medications - Discharge Medications New Escitalopram [Lexapro] 10 mg PO DAILY PRN tablet PRN Reason: Depression HYDROcodone/ACETAMIN 5-325 [Tyrone 5-325] 1 tablet PO Q8H PRN #30 tablet PRN Reason: Pain Mild (1-3) metroNIDAZOLE TAB [Flagyl Cap/Tab] 500 mg PO TID #42 tablet Ciprofloxacin [Ciprofloxacin Susp] 500 mg PO BID #28 tablet Continue Escitalopram [Lexapro] 10 mg PO DAILY PRN PRN Reason: Depression clonazePAM [Clonazepam] 1 mg PO DAILY PRN PRN Reason: Anxiety Ondansetron Odt Tab [Zofran Odt] 4 mg PO Q6H PRN #40 tablet PRN Reason: Nausea/Vomiting Naproxen [Naprosyn Tab] 375 mg PO Q12H PRN PRN Reason: Pain No Action Promethazine Tab [Phenergan Tab] 25 mg PO Q6H - Follow Up or Referral Follow Up: Torsten Jose MD [Physician] - 03/15/17 10:00 am (putpatient c scope ) - Forms/Instructions Exam - Constitutional Vitals: Period Temp Pulse Resp BP Sys/Gupta Pulse Ox Last 24 Hr 97.6 F-98.3 F 50-73 18-20 120-147/70-93 93-130 General appearance: no acute distress, over weight - Head Head exam: Present: normal inspection, normocephalic - Eye Eye exam: Present: EOMI. Absent: conjunctival injection Pupils: Present: MICHELLE, normal accommodation - ENT ENT exam: Present: normal exam, normal external ear exam, normal oropharynx - Neck Neck exam: Present: normal inspection. Absent: lymphadenopathy, meningismus, tenderness, thyromegaly - Respiratory Respiratory exam: Present: clear to auscultation bilaterally. Absent: rales, rhonchi, stridor, wheezes - Cardiovascular Cardiovascular exam: Present: regular rate and rhythm. Absent: carotid bruit, diastolic murmur, gallop, JVD, rubs, systolic murmur - GI/Abdominal GI/Abdominal exam: Present: normal bowel sounds, tenderness (Diffuse tenderness) , soft - Extremities Exam Extremities exam: Present: normal inspection, normal capillary refill, full ROM , edema - Back Exam Back exam: Present: normal inspection - Neurological Exam Neurological exam: Present: alert, oriented X3, CN II-XII intact - Psychiatric Psychiatric exam: Present: normal affect, normal mood - Skin Skin exam: Present: normal color, warm, dry Discharge Results Procedures and tests throughout hospitalization: Pending Orders 02/10/17 13:28 Blood Culture Stat 02/10/17 18:05 Occult Blood, Stool Stat Labs on day of discharge: Labs from last 24 hours 02/13/17 02/12/17 04:11 20:52 Sodium 143 Potassium 4.3 4.0 Chloride 110 H Carbon Dioxide 22 Anion Gap 15.3 H BUN 5 L Creatinine 0.60 GFR Calculation 149 BUN/Creatinine Ratio 8.00 Glucose 89 Calculated Osmolality 280.0 Calcium 8.1 L Preliminary micro results at discharge 02/10/17 13:28 Blood Culture - Preliminary Blood No growth at 1 day 02/10/17 13:28 Blood Culture - Preliminary Blood No growth at 1 day DS: Provider Date of admission: 02/10/17 13:56 Primary care physician: . No PCP Attending physician on admission: Marco aHncock Consults: 02/10/17 16:55 Consult to Physician [CONS] Routine Comment: Consulting Provider: Torsten Jose Person Notified: dr. [email or web address] Date Notified: 02/11/17 Time Notified: 08:45 Discharging clinician: Freda Barros CNP <Marco Hancock - Last Filed: 02/13/17 13:11> Diagnosis - Discharge Diagnosis (1) Hypokalemia Status: Resolved (2) Enterocolitis Status: Resolved
[2017-02-13 12:28] VITALS: BP 122/73
== END 2017-02-13 14:39 | disposition home or self-care (01) | DRG 392 ==
LOC: N.ED 10:45 → N.EDINP 13:56 → N.2E 16:20

== ENCOUNTER 2017-02-13 22:25 | Inpatient (IN) ==
[2017-02-14] MEDS ORDERED: SODIUM CHLORIDE 0.9% 1,000 ML IV STA (00:51)
[2017-02-14] MEDS ORDERED: ONDANSETRON 4 MG/2 ML VIAL IV STA ×2 (00:51→04:16)
[2017-02-14] MEDS ORDERED: ONDANSETRON 4 MG/2 ML VIAL ONE ×2 (00:54→04:20)
[2017-02-14 01:16] LABS: Bilirubin,Total 0.4 MG/DL (0.2-1.0); Calcium 8.5 MG/DL (8.5-10.1); Total Protein 5.9 G/DL (6.4-8.3)
[2017-02-14 01:24] LABS: Eosinophils # 0.1 10*3/uL (0.0-0.87); Eosinophils % 1.5 % (0.00-10.9); Mean Corpuscular Volume 90.4 FL (87-102); Monocytes # 0.7 10*3/uL (0.11-0.8); Monocytes % 7.7 % (1.7-12.7); White Blood Count 8.4 T/CUMM (4-12)
[2017-02-14 01:30] LABS: Basophils % 0.5 % (0.0-0.8); Hematocrit 34.7 VOL% (35.7-47.0); Immature Granulocytes % 1.4 %; Immature Granulocytes Absolute 0.12 #; Lymphocytes # 1.9 10*3/uL (1.4-4.0); Mean Corpuscular HGB Conc 34.6 GM/DL (32-36); Mean Corpuscular Hemoglobin 31 PG (27-34); Mean Platelet Volume 10.5 FL (9.6-12.0); Neutrophils # 5.5 10*3/uL (1.4-7.4); Neutrophils % 65.9 % (38.7-73.9); Platelet Count 327 T/CUMM (130-400); Red Blood Count 3.84 MC/CUMM (3.8-5.5); Red Cell Distribution Width 12.3 % (9.3-17.3)
[2017-02-14 03:03] LABS: Atypical Lymphocytes Few; Band Neutrophils 2 % (0-10); Eosinophils 2 % (0-10); Giant Platelets Few; Lymphocytes 27 % (20-55); Myelocytes 2 %; Platelet Estimate Normal; Segmented Neutrophils 61 % (50-85); Total Cells Counted 100
[2017-02-14] MEDS ORDERED: HYDROmorphone 2 MG/1 ML VIAL IV STA (04:16)
[2017-02-14] MEDS ORDERED: HYDROmorphone 2 MG/1 ML VIAL ONE (04:20)
[2017-02-14 04:44] LABS: Apearance,Urine CLEAR (Clear); Bilirubin,Urine Negative (Negative); Blood, Urine Negative (Negative); Glucose,Urine (UA) Negative (Negative); Ketones,Urine 20 mg/dL (Negative); Mucus,Urine Occasional /LPF (Occasional); Nitrite,Urine Negative (Negative); Protein,Urine Negative; RBC,Urine 1 /HPF (0-4); Squamous Epithelial Cell,Urine Occasional /HPF (0-10); Urine Color Yellow (Yellow); Urine Specific Gravity 1.011 (1.001-1.035); Urine Urobilinogen < 2.0 EU/DL (0.2-1.0); WBC,Urine 1 /HPF (0-6)
[2017-02-14] MEDS ORDERED: POTASSIUM CHLORIDE RIDER 10 MEQ in PREMIX 1 EACH IV PRN (07:04)
[2017-02-14] MEDS ORDERED: MAGNESIUM SULF RIDER 2 GM in PREMIX 1 EACH IV PRN (07:04)
[2017-02-14] MEDS ORDERED: MAGNESIUM SULF RIDER 4 GM in PREMIX 1 EACH IV PRN (07:04)
[2017-02-14] MEDS ORDERED: SODIUM CHLORIDE 0.9% 1,000 ML IV SCH (07:30)
[2017-02-14] MEDS ORDERED: metroNIDAZOLE INJ 500 MG in PREMIX 1 EACH IV SCH (07:30)
[2017-02-14] MEDS ORDERED: metroNIDAZOLE 500 MG/100 ML PREMIX IV ONE (07:39)
[2017-02-14] MEDS ORDERED: MORPHINE 2 MG/1 ML SYRINGE IV PRN (08:48)
[2017-02-14] MEDS ORDERED: ONDANSETRON 4 MG/2 ML VIAL IV PRN (08:48)
[2017-02-14] MEDS ORDERED: ESCITALOPRAM 10 MG TABLET PO PRN (08:48)
[2017-02-14] MEDS ORDERED: clonazePAM 0.5 MG TABLET PO PRN (08:48)
[2017-02-14] MEDS ORDERED: PANTOPRAZOLE 40 MG VIAL IV SCH (09:00)
[2017-02-14] MEDS: DEXTROSE 5% NACL 0.9% 1,000 ML IV SCH ×2 (10:57→17:15)
[2017-02-14] MEDS: PANTOPRAZOLE 40 MG VIAL IV SCH (10:58)
[2017-02-14] MEDS: CIPROFLOXACIN INJ 400 MG in PREMIX 1 EACH IV SCH ×2 (10:58→21:34)
[2017-02-14] MEDS: metroNIDAZOLE INJ 500 MG in PREMIX 1 EACH IV SCH (17:09)
[2017-02-14] MEDS ORDERED: POLYETHYLENE GLYCOL POWDER 255 GM BOTTLE PO ONE (18:00)
[2017-02-14] MEDS: HYDROmorphone 2 MG/1 ML VIAL IV PRN (18:02)
[2017-02-14] MEDS: ONDANSETRON 4 MG/2 ML VIAL IV PRN (18:02)
[2017-02-14] MEDS: ACETAMINOPHEN 325 MG TABLET PO PRN (19:46)
[2017-02-15] MEDS: HYDROmorphone 2 MG/1 ML VIAL IV PRN (00:28)
[2017-02-15] MEDS: ONDANSETRON 4 MG/2 ML VIAL IV PRN (00:28)
[2017-02-15] MEDS: metroNIDAZOLE INJ 500 MG in PREMIX 1 EACH IV SCH ×3 (00:28→17:41)
[2017-02-15] MEDS: DEXTROSE 5% NACL 0.9% 1,000 ML IV SCH ×3 (03:05→17:41)
[2017-02-15] MEDS ORDERED: MAGNESIUM CITRATE 300 ML BOTTLE PO ONE (06:00)
[2017-02-15 07:07] LABS: Basophils % 0.4 % (0.0-0.8); Eosinophils # 0.2 10*3/uL (0.0-0.87); Eosinophils % 3.6 % (0.00-10.9); Hematocrit 31.8 VOL% (35.7-47.0); Immature Granulocytes % 0.6 %; Immature Granulocytes Absolute 0.03 #; Lymphocytes # 1.8 10*3/uL (1.4-4.0); Lymphocytes % 38.6 % (21.3-54.2); Mean Corpuscular HGB Conc 34.6 GM/DL (32-36); Mean Corpuscular Hemoglobin 32 PG (27-34); Mean Corpuscular Volume 91.1 FL (87-102); Mean Platelet Volume 9.9 FL (9.6-12.0); Monocytes # 0.4 10*3/uL (0.11-0.8); Monocytes % 9.1 % (1.7-12.7); Neutrophils # 2.2 10*3/uL (1.4-7.4); Neutrophils % 47.7 % (38.7-73.9); Platelet Count 287 T/CUMM (130-400); Red Blood Count 3.49 MC/CUMM (3.8-5.5); Red Cell Distribution Width 12.5 % (9.3-17.3); White Blood Count 4.7 T/CUMM (4-12)
[2017-02-15 07:29] LABS: Eosinophils 5 % (0-10); Lymphocytes 45 % (20-55); Platelet Estimate Adequate; Segmented Neutrophils 44 % (50-85); Total Cells Counted 100
[2017-02-15 07:30] LABS: Giant Platelets Few; Hypochromasia 1+; Ovalocytes Slight
[2017-02-15 07:44] LABS: Albumin 2.7 G/DL (3.4-5.0); Bilirubin,Total 0.4 MG/DL (0.2-1.0); Calcium 8.3 MG/DL (8.5-10.1); Magnesium 1.8 MG/DL (1.8-2.4); Osmolality,Calculated 281.8 MOS/KG (273-304); Potassium 3.5 MMOL/L (3.5-5.1); Total Protein 5.3 G/DL (6.4-8.3)
[2017-02-15] MEDS: PANTOPRAZOLE 40 MG VIAL IV SCH (09:25)
[2017-02-15] MEDS: CIPROFLOXACIN INJ 400 MG in PREMIX 1 EACH IV SCH ×2 (10:45→21:54)
[2017-02-15] MEDS ORDERED: PROPOFOL 200 MG/20 ML VIAL IV ONE (11:34)
[2017-02-15] MEDS ORDERED: LIDOCAINE 1% 5 ML VIAL ONE (11:34)
[2017-02-15] MEDS: methylPREDNISolone SOD SUC 40 MG/1 ML VIAL IV SCH ×2 (15:02→19:47)
[2017-02-15] MEDS: ACETAMINOPHEN 325 MG TABLET PO PRN (19:55)
[2017-02-16] MEDS: DEXTROSE 5% NACL 0.9% 1,000 ML IV SCH ×2 (00:12→08:56)
[2017-02-16] MEDS: metroNIDAZOLE INJ 500 MG in PREMIX 1 EACH IV SCH ×2 (00:12→08:56)
[2017-02-16] MEDS: methylPREDNISolone SOD SUC 40 MG/1 ML VIAL IV SCH (04:10)
[2017-02-16 07:59] VITALS: BP 117/56
[2017-02-16] MEDS: PANTOPRAZOLE 40 MG VIAL IV SCH (08:53)
[2017-02-21 20:46] LABS: Cryptosporidium Antigen Stool Negative (Negative)
== END 2017-02-16 10:59 | disposition home or self-care (01) | DRG 386 ==
LOC: N.ED 22:25 → N.EDINP 02-14 06:50 → SUATTDRO 02-14 06:50 → N.EDINP 02-14 07:57 → N.5E 02-14 08:47
PROVIDERS: ADMIT Internal Medicine; ATTEND Internal Medicine
PROC: COLONBX (2017-02-15 11:05)

== ENCOUNTER 2021-02-03 01:49 | Inpatient (IN) ==
[2021-02-03] MEDS ORDERED: HYDROmorphone 2 MG/1 ML VIAL IV STA (02:05)
[2021-02-03] MEDS ORDERED: SODIUM CHLORIDE 0.9% 1,000 ML IV STA (02:05)
[2021-02-03] MEDS ORDERED: methylPREDNISolone SOD SUC 125 MG/2 ML VIAL IV STA (02:05)
[2021-02-03] MEDS ORDERED: PANTOPRAZOLE 40 MG VIAL IV STA (02:05)
[2021-02-03] MEDS ORDERED: ONDANSETRON 4 MG/2 ML VIAL IV STA (02:05)
[2021-02-03 02:39] LABS: Basophils % 0.1 % (0.0-0.8); Eosinophils # 0.2 10*3/uL (0.0-0.87); Eosinophils % 2.1 % (0.00-10.9); Hematocrit 39.6 VOL% (35.7-47.0); Hemoglobin 12.8 GM/DL (12.0-16.0); Immature Granulocytes % 0.4 %; Immature Granulocytes Absolute 0.04 #; Lymphocytes # 2.3 10*3/uL (1.4-4.0); Lymphocytes % 23.8 % (21.3-54.2); Mean Corpuscular HGB Conc 32.3 GM/DL (32-36); Mean Corpuscular Volume 87.2 FL (87-102); Mean Platelet Volume 9.2 FL (9.6-12.0); Monocytes % 4.5 % (1.7-12.7); Neutrophils % 69.1 % (38.7-73.9); Platelet Count 318 T/CUMM (130-400); Red Blood Count 4.54 MC/CUMM (3.8-5.5); Red Cell Distribution Width 12.9 % (9.3-17.3); White Blood Count 9.8 T/CUMM (4-12)
[2021-02-03 02:51] LABS: Bacteria,Urine Occasional /HPF (Few); Bilirubin,Urine Negative (Negative); Blood, Urine Negative (Negative); Calcium Oxalate Crystals,Urine Occasional /HPF (Few); Glucose,Urine (UA) Negative (Negative); Granular Casts,Urine 13 /LPF (0-1); Hyaline Casts,Urine 95 /LPF (0-3); Ketones,Urine Negative (Negative); Mucus,Urine Moderate /LPF (Occasional); Nitrite,Urine Negative (Negative); Protein,Urine Negative; RBC,Urine 1 /HPF (0-4); Squamous Epithelial Cell,Urine Occasional /HPF (0-10); Urine Appearance Slightly Hazy (Clear); Urine Color Yellow (Yellow); Urine Specific Gravity 1.021 (1.001-1.035); Urine Urobilinogen < 2.0 EU/DL (0.2-1.0)
[2021-02-03 03:00] LABS: Alanine Aminotransferase 25 U/L (13-56); Albumin 3.6 G/DL (3.4-5.0); Alkaline Phosphatase 58 U/L (45-117); Amylase 38 U/L (25-115); Aspartate Amino Transferase 11 U/L (0-37); Bilirubin,Total < 0.39 MG/DL (0.20-1.00); Blood Urea Nitrogen 7 MG/DL (7-18); Calcium 8.9 MG/DL (8.5-10.1); Carbon Dioxide 24 MMOL/L (21-32); Estimated Glom Filtration Rate 151 ML/MIN; Glucose 103 MG/DL (74-106); Potassium 3.6 MMOL/L (3.5-5.1); Sodium 143 MMOL/L (136-145); Total Protein 7.1 G/DL (6.4-8.2)
[2021-02-03] MEDS ORDERED: PROMETHAZINE 25 MG/1 ML VIAL IM PRN (03:33)
[2021-02-03] MEDS ORDERED: DEXTROSE 50% 25 GM/50 ML VIAL IV PRN (03:33)
[2021-02-03] MEDS ORDERED: GLUCAGON 1 MG VIAL IM PRN (03:33)
[2021-02-03] MEDS ORDERED: dimenhyDRINATE 50 MG TABLET PO PRN (03:39)
[2021-02-03] MEDS ORDERED: METHOCARBAMOL 500 MG TABLET PO PRN (03:43)
[2021-02-03] MEDS: SODIUM CHLORIDE 0.9% 1,000 ML IV SCH ×3 (06:46→20:29)
[2021-02-03] MEDS: ONDANSETRON 4 MG/2 ML VIAL IV PRN ×3 (06:59→19:39)
[2021-02-03] MEDS: HYDROmorphone 2 MG/1 ML VIAL IV PRN ×3 (07:00→19:38)
[2021-02-03] MEDS: PANTOPRAZOLE 40 MG VIAL IV SCH ×2 (08:47→20:20)
[2021-02-03] MEDS: CLORAZEPATE 3.75 MG TABLET PO SCH (08:47)
[2021-02-03] MEDS ORDERED: busPIRone 15 MG TABLET PO PRN (11:30)
[2021-02-03] MEDS: methylPREDNISolone SOD SUC 40 MG/1 ML VIAL IV SCH ×2 (11:44→17:32)
[2021-02-03] MEDS ORDERED: CIPROFLOXACIN INJ 400 MG/200 ML PREMIX IV SCH (15:00)
[2021-02-03] MEDS ORDERED: BISACODYL 5 MG TABLET PO ONE (15:00)
[2021-02-03] MEDS: ONDANSETRON ODT 4 MG TABLET PO PRN (15:03)
[2021-02-03] MEDS ORDERED: diphenhydrAMINE CAP 25 MG CAPSULE PO PRN (15:46)
[2021-02-03] MEDS ORDERED: diphenhydrAMINE CAP 25 MG CAPSULE ONE (15:48)
[2021-02-03] MEDS ORDERED: POLYETHYLENE GLYCOL POWDER 255 GM BOTTLE PO ONE (18:00)
[2021-02-03] MEDS: metroNIDAZOLE INJ 500 MG/100 ML PREMIX IV SCH (20:20)
[2021-02-04] MEDS: HYDROmorphone 2 MG/1 ML VIAL IV PRN ×4 (00:23→21:18)
[2021-02-04] MEDS: ONDANSETRON 4 MG/2 ML VIAL IV PRN ×4 (00:25→21:18)
[2021-02-04] MEDS: methylPREDNISolone SOD SUC 40 MG/1 ML VIAL IV SCH ×3 (03:00→17:09)
[2021-02-04] MEDS: metroNIDAZOLE INJ 500 MG/100 ML PREMIX IV SCH ×3 (03:01→21:15)
[2021-02-04] MEDS ORDERED: POLYETHYLENE GLYCOL POWDER 255 GM BOTTLE PO ONE (05:00)
[2021-02-04 05:22] LABS: Basophils % 0.1 % (0.0-0.8); Eosinophils % 0.3 % (0.00-10.9); Hematocrit 35.6 VOL% (35.7-47.0); Hemoglobin 11.4 GM/DL (12.0-16.0); Immature Granulocytes % 0.6 %; Immature Granulocytes Absolute 0.07 #; Lymphocytes # 2.1 10*3/uL (1.4-4.0); Lymphocytes % 17.4 % (21.3-54.2); Mean Corpuscular Volume 89.9 FL (87-102); Mean Platelet Volume 9.4 FL (9.6-12.0); Monocytes % 3.6 % (1.7-12.7); Platelet Count 274 T/CUMM (130-400); Red Blood Count 3.96 MC/CUMM (3.8-5.5); White Blood Count 11.8 T/CUMM (4-12)
[2021-02-04 05:34] LABS: PT Patient Result 11.4 SECS (10.5-12.0)
[2021-02-04 05:48] LABS: Albumin 3.1 G/DL (3.4-5.0); Bilirubin,Total 0.7 MG/DL (0.20-1.00); Calcium 8.6 MG/DL (8.5-10.1); Osmolality,Calculated 280.3 MOS/KG (273-304); Potassium 3.7 MMOL/L (3.5-5.1); Total Protein 6.6 G/DL (6.4-8.2)
[2021-02-04] MEDS: SODIUM CHLORIDE 0.9% 1,000 ML IV SCH ×3 (06:12→23:25)
[2021-02-04] MEDS: CLORAZEPATE 3.75 MG TABLET PO SCH (09:30)
[2021-02-04] MEDS: PANTOPRAZOLE 40 MG VIAL IV SCH ×2 (09:31→21:15)
[2021-02-04] MEDS: LACTATED RINGERS 1,000 ML IV SCH (11:30)
[2021-02-04] MEDS ORDERED: LIDOCAINE 2% 5 ML VIAL ONE (12:10)
[2021-02-04] MEDS ORDERED: propofoL 200 MG/20 ML VIAL IV ONE (12:10)
[2021-02-04] MEDS ORDERED: GLUCAGON 1 MG VIAL IM PRN (13:30)
[2021-02-04] MEDS ORDERED: DEXTROSE 50% 25 GM/50 ML VIAL IV PRN (13:30)
[2021-02-04] MEDS: ONDANSETRON ODT 4 MG TABLET PO PRN (23:25)
[2021-02-05] MEDS: methylPREDNISolone SOD SUC 40 MG/1 ML VIAL IV SCH (01:05)
[2021-02-05] MEDS: ONDANSETRON 4 MG/2 ML VIAL IV PRN ×3 (02:25→12:39)
[2021-02-05] MEDS: HYDROmorphone 2 MG/1 ML VIAL IV PRN ×2 (02:25→12:39)
[2021-02-05] MEDS: metroNIDAZOLE INJ 500 MG/100 ML PREMIX IV SCH (03:20)
[2021-02-05 05:59] LABS: Basophils % 0.2 % (0.0-0.8); Hematocrit 34.2 VOL% (35.7-47.0); Hemoglobin 10.9 GM/DL (12.0-16.0); Immature Granulocytes % 1.2 %; Immature Granulocytes Absolute 0.13 #; Lymphocytes # 2.2 10*3/uL (1.4-4.0); Lymphocytes % 19.7 % (21.3-54.2); Mean Corpuscular HGB Conc 31.9 GM/DL (32-36); Mean Corpuscular Volume 90.7 FL (87-102); Mean Platelet Volume 9.4 FL (9.6-12.0); Monocytes % 3.9 % (1.7-12.7); Platelet Count 288 T/CUMM (130-400); Red Blood Count 3.77 MC/CUMM (3.8-5.5); White Blood Count 11.1 T/CUMM (4-12)
[2021-02-05 06:17] LABS: Calcium 8.6 MG/DL (8.5-10.1); Osmolality,Calculated 279.4 MOS/KG (273-304); Potassium 3.7 MMOL/L (3.5-5.1)
[2021-02-05] MEDS: CLORAZEPATE 3.75 MG TABLET PO SCH (08:26)
[2021-02-05] MEDS: PANTOPRAZOLE 40 MG VIAL IV SCH (08:27)
[2021-02-05] MEDS: LACTATED RINGERS 1,000 ML IV SCH (08:31)
[2021-02-05] MEDS ORDERED: methylPREDNISolone SOD SUC 40 MG/1 ML VIAL IV SCH (13:00)
[2021-02-05 13:32] LABS: Bacteria,Urine Occasional /HPF (Few); Bilirubin,Urine Negative (Negative); Blood, Urine Negative (Negative); Glucose,Urine (UA) Negative (Negative); Ketones,Urine Negative (Negative); Mucus,Urine Few /LPF (Occasional); Nitrite,Urine Negative (Negative); Protein,Urine Negative; RBC,Urine 2 /HPF (0-4); Squamous Epithelial Cell,Urine Few /HPF (0-10); Urine Appearance CLEAR (Clear); Urine Color Yellow (Yellow); Urine Urobilinogen < 2.0 EU/DL (0.2-1.0)
[2021-02-05] MEDS: SODIUM CHLORIDE 0.9% 1,000 ML IV SCH (15:15)
[2021-02-05 17:17] VITALS: BP 148/83
== END 2021-02-05 18:15 | disposition home or self-care (01) | DRG 386 ==
LOC: N.EDINP 01:49 → N.ED 01:49 → N.3E 05:31 → SUATTDRO 02-04 13:58
PROVIDERS: ADMIT Internal Medicine; ATTEND Internal Medicine